=== PATIENT | male | born 2000 | race Caucasian/White ===

== ENCOUNTER 2022-04-17 18:58 | Emergency (ER) | payer SELFPAY | END 2022-04-17 21:00 | disposition left against medical advice (07) | LOC: MW.ED 18:58 | DX: Z53.21 Procedure and treatment not carried out due to patient leaving prior to being seen by health care provider (principal) ==

== ENCOUNTER 2024-08-16 15:53 | Emergency (ER) | payer OTHER ==
[2024-08-16] MEDS: Diphtheria,Pertussis(Acell),Tetanus Vaccine 0.5 ML Syringe IM ONE (16:40)
[2024-08-16] MEDS: Lidocaine 1% 5 ML VIAL INJECT STA (16:40)
== END 2024-08-16 17:19 | disposition home or self-care (01) ==
LOC: MW.ED 15:53
DX: S61.213A Laceration without foreign body of left middle finger without damage to nail, initial encounter (principal); Z23 Encounter for immunization; Z75.8 Other problems related to medical facilities and other health care; V49.40XA Driver injured in collision with unspecified motor vehicles in traffic accident, initial encounter
CPT/HCPCS: 12001; 90471; 90715; 99282; 99284-25; J3490